=== PATIENT | male | born 1945 | race Caucasian/White ===

== ENCOUNTER → 2017-08-22 | Outpatient (CLI) | payer MEDICARE ==
--- NOTE | 2017-08-22 12:46 | CONS ---
CONSULTATION DATE OF SERVICE: 08/22/2017 This 71-year-old gentleman has been evaluated in sleep center for obstructive sleep apnea-hypopnea syndrome. HISTORY OF PRESENT ILLNESS/SLEEP WAKE EVALUATION: The patient had been diagnosed with obstructive sleep apnea in [place] in June of 2017. According to patient, he had polysomnogram and CPAP titration and then patient was given CPAP unit and he is using his CPAP equipment now every night. Without machine he had snoring and multiple awakenings from sleep. Presently with the machine according to the patient, he does not snore and sleeps better than without machine. His sleep schedule from 10 p.m. to 7 a.m. No problems with falling asleep. He wakes up maybe once with nocturia. Cascade Sleepiness Scale today is in normal range 3. PAST MEDICAL HISTORY: Positive for hypertension, allergy, hyperlipidemia, back problem, glaucoma. PAST SURGICAL HISTORY: Cholecystectomy. MEDICATIONS: Aspirin, vitamin D3, Zyrtec, ibuprofen, ophthalmic solution, dorzolamide, timolol, losartan, Lumigan, loteprednol eye drops, methazolamide, hydrochlorothiazide, simvastatin. REVIEW OF SYSTEMS: Sometimes leak from the mask in the middle of the night, swelling of the legs. SOCIAL HISTORY: Negative for smoking. Alcohol consumption socially. FAMILY HISTORY: Heart problems his dad and dementia his mother. PHYSICAL EXAMINATION: During physical exam, gentleman without distress. VITAL SIGNS: BP 172/85, HR 88, RR 16, height 5 feet 8-1/2 inches, weight 315, BMI 47.1, neck 21 inches in circumference, temperature 98.0, oxygen saturation on room air 98%. HEENT: PERRLA, EOMI. Oropharynx extremely low position of soft palate. Face: Rosacea on the nose and cheeks. ABDOMEN: Obese. EXTREMITIES: 2+ bilateral ankle edema. I checked the patient's CPAP unit. It is an automatic regimen with a pressure between 10 and 20. Usual pressure is 16.1 cm of water. Patient demonstrated great compliance with treatment. Usage is 100% of the nights and 27/30 nights usage for more than 4 hours, average 6.6 hours. Leak is 10 L/minute which is normal range. Apnea-hypopnea index 3.4, which is totally normal. IMPRESSION: 1. Obstructive sleep apnea-hypopnea syndrome documented at different institution in June of 2017, extremely low position of soft palate, wide neck, obesity. Patient respiration is normal on treatment with CPAP. The patient demonstrated great compliance with treatment benefitting from CPAP therapy. 2. Obesity. 3. Hypertension. 4. Swelling of the legs. 5. Allergy. 6. Hyperlipidemia. 7. Glaucoma. 8. Back problem. 9. Rosacea of the face. 10.Status post cholecystectomy. PLAN: 1. Continue treatment with CPAP every night for the whole night. 2. I changed ramp in his CPAP unit from 0 to 20 minutes. 3. Losing weight. 4. The patient may try to use nasal pillow mask with chin strap. 5. No driving if feeling sleepiness. 6. We will follow with prescription for all necessary CPAP supplies in the future and a prescription for a chin strap. 7. No driving if feeling any sleepiness. Thank you very much for referring this patient for consultation. Sincerely, Kvng Benito MD, PhD, FAASM Diplomat of [employer] [employer] [facility] [place] MMODL / TIGRE: [id number] /
== END | disposition home or self-care (01) ==
LOC: SLEEP 11:03
PROVIDERS: ATTEND Internal Medicine
DX: G47.33 Obstructive sleep apnea (adult) (pediatric) (principal); M27.8 Other specified diseases of jaws; E66.9 Obesity, unspecified; I10 Essential (primary) hypertension; M79.89 Other specified soft tissue disorders; M53.9 Dorsopathy, unspecified; E78.5 Hyperlipidemia, unspecified; H40.9 Unspecified glaucoma; L71.9 Rosacea, unspecified; Z90.49 Acquired absence of other specified parts of digestive tract; Z79.82 Long term (current) use of aspirin; Z91.048 Other nonmedicinal substance allergy status; Z79.1 Long term (current) use of non-steroidal anti-inflammatories (NSAID); Z79.899 Other long term (current) drug therapy; Z99.89 Dependence on other enabling machines and devices; Z68.42 Body mass index [BMI] 45.0-49.9, adult
CPT/HCPCS: 99211